=== PATIENT | female | born 1950 | race Caucasian/White ===

== ENCOUNTER 2020-12-10 22:44 | Emergency (ER) | payer MEDICARE, MEDICAID, SELFPAY ==
[2020-12-10 22:45] VITALS: PULSE 96; RESP 22; TEMP 36.6; O2SAT 96; BMI 23.2
[2020-12-10 22:48] VITALS: BP 146/84; PULSE 100; RESP 19; TEMP 36.6; O2SAT 96
--- NOTE | 2020-12-10 22:50 | EKG12_ITS ---
Test Reason : NEURO SX Blood Pressure : / mmHG Vent. Rate : 090 BPM Atrial Rate : 090 BPM P-R Int : 146 ms QRS Dur : 134 ms QT Int : 412 ms P-R-T Axes : 070 -82 -13 degrees QTc Int : 504 ms Atrial-sensed ventricular-paced rhythm Abnormal ECG Confirmed by BRANDEE VÁSQUEZ, ANNA ([id number]), slot editor NATHAN MILLER ([id number]) on 12/16/2020 10:22:22 A M Referred By: LAUREN Confirmed By:RYLIE IRVIN MD
--- NOTE | 2020-12-10 22:50 | RAD_ITS ---
STUDY: X-RAY CHEST REASON FOR EXAM: Female, 70 years old. Neuro deficit, acute, stroke suspected TECHNIQUE: Single AP portable view of the chest. COMPARISON: December 12, 2016 chest x-ray FINDINGS: The right axillary clips. There is a left-sided pacer defibrillator. Left lower chest is obscured by the pacer. Findings are stable since prior study. The lungs are clear and expanded. There is no demonstrated pleural abnormality. There is mild cardiac enlargement. Normal mediastinum and nain. Normal visualized pulmonary arteries. Normal visualized aortic arch and descending thoracic aorta. There are diffuse degenerative changes of the visualized thoracic spine. Normal visualized ribs, clavicles, and shoulders. There is no demonstrated abnormality of the visualized soft tissue structures of the upper abdomen. RAD/Chest 1 View IMPRESSION: Stable chest, defibrillator. Borderline cardiomegaly. Postoperative change right axilla. No visualized focal infiltrate. The pacer obscures the left lower chest similar to prior study. Electronically Signed: Renea Horn MD at 0:09 EST Tel , Service support ,
--- NOTE | 2020-12-10 22:50 | CT_ITS ---
We are attempting to reach an attending provider to discuss findings. An addendum with communication details will be sent when the communication is complete. STUDY: CT HEAD STROKE PROTOCOL W/O CONTRAST INJECTION REASON FOR EXAM: Female, 70 years old. Neuro deficit, acute, stroke suspected RADIATION DOSAGE (If Supplied By Facility): CTDIvol = ( ) mGy, DLP = ( 846.73 ) mGycm TECHNIQUE: Transaxial CT imaging of the brain was performed without administration of intravenous contrast material. Individualized dose optimization techniques were used for this CT. COMPARISON: 12/23/2016 CT head FINDINGS: Subcutaneous hematoma to the right for head. Normal calvarium. There is mild cerebral atrophy with widening of the extra-axial spaces and ventricular dilatation. There are areas of decreased attenuation within the white matter tracts of the supratentorial brain, consistent with microvascular disease changes. Remote lacunar infarcts in the basal ganglia and thalami bilaterally. Coarse severe intracranial atherosclerosis. Normal brainstem. Normal cerebellum. There is no intracranial hemorrhage. There are no findings of an acute ischemic infarction. Normal visualized paranasal sinuses. IMPRESSION: Forehead hematoma. Otherwise no acute disease. Chronic involutional changes of the brain. Electronically Signed: Riaz Echols MD at 23:18 EST , Service support , CT/STROKE Brain/Head without Cont
--- NOTE | 2020-12-10 22:50 | ED.VIS.GEN ---
History of Present Illness Chief Complaint: Neuro S/Sx Past Medical History - Allergies and Home Meds Allergies/Adverse Reactions: Allergies adhesive Allergy (Verified 04/08/17 18:42) Rash albuterol Allergy (Verified 04/08/17 18:42) Unknown amlodipine besylate [From Norvasc] Allergy (Verified 04/08/17 18:42) Hives ciprofloxacin [From Cipro] Allergy (Verified 04/08/17 18:42) Shortness of breath ciprofloxacin HCl [From Cipro] Allergy (Verified 04/08/17 18:42) Shortness of breath Corticosteroids (Glucocorticoids) Allergy (Verified 04/08/17 18:42) Unknown Latex, Natural Rubber Allergy (Verified 04/08/17 18:42) Hives metaproterenol sulfate [From Alupent] Allergy (Verified 04/08/17 18:42) Unknown Penicillins Allergy (Verified 04/08/17 18:42) Hives prazosin HCl [From Minipress] Allergy (Verified 04/08/17 18:42) Unknown Sulfa (Sulfonamide Antibiotics) Allergy (Verified 04/08/17 18:42) Unknown sulfamethoxazole [From Bactrim] Allergy (Verified 04/08/17 18:42) Unknown trimethoprim [From Bactrim] Allergy (Verified 04/08/17 18:42) Unknown doxycycline Adverse Reaction (Verified 04/08/17 18:42) Diarrhea isosorbide mononitrate [From Imdur] Adverse Reaction (Verified 04/08/17 18:42) Other headache lactose Adverse Reaction (Verified 04/08/17 18:42) Nausea/Vom/Diarrhea prednisone Adverse Reaction (Verified 04/08/17 18:42) Other weakness Primary Care Physician: Jose Acosta MD [Primary Care Provider] - Surgical History: angioplasty, mastectomy - Right, - - Catheterization, PPM placement, L knee surgery, R mastectomy. Smoking Status: Current every day smoker - Family History Maternal Family History: Reports: No pertinent history Paternal Family History: Reports: No pertinent history Physical Exam Vital Signs/Narrative: Vital Signs Temp Pulse Resp Pulse Ox 12/10/20 22:45 98 F 96 22 H 96 ED Disposition - Plan for ED Patient: Referrals: Jose Acosta MD [Primary Care Provider] -
[2020-12-10 22:57] VITALS: BMI 23.2
--- NOTE | 2020-12-10 23:09 | CT_ITS ---
STUDY: CT CERVICAL SPINE WITHOUT CONTRAST REASON FOR EXAM: Female, 70 years old. Fall RADIATION DOSAGE (If Supplied By Facility): CTDIvol = ( 22.27 ) mGy, DLP = ( 426.76 ) mGycm TECHNIQUE: High resolution transaxial imaging was performed without contrast material. Sagittal and coronal images were reconstructed. Individualized dose optimization techniques were used for this CT. COMPARISON: March 18, 2015 FINDINGS: Normal craniovertebral junction. Normal anterior atlantoaxial articulation. Normal odontoid process. Calcification of the transverse ligament. Straightening of the normal cervical lordosis compatible with muscle spasm or patient positioning. No fracture identified. Normal vertebral bodies and posterior osseous elements. Displaced narrowing with small marginal osteophytes C3-C4 and C6-C7. Minimal retrolisthesis C3 on C4. Posterior osteophyte disc complex C3-C4 produces mild spinal stenosis. Neuroforamina narrowing C3-C4 on the left, C4-C5 on the right, C5-C6 on the left, C6-C7 bilaterally. Normal visualized soft tissue structures. Carotid calcifications. There is atherosclerotic calcification of the vertebral arteries.. CT/Spine Cervical without Contras IMPRESSION: Multilevel degenerative changes of the cervical spine, no fracture identified. Electronically Signed: Etienne Bagley MD at 0:19 EST , Service support ,
--- NOTE | 2020-12-10 23:09 | ED.RN ---
MD AT BEDSIDE, RAPID IMPROVEMENT IN NIHSS, DID NOT BEAM IN TO [facility] PER MD.
--- NOTE | 2020-12-10 23:10 | ED.VIS.GEN ---
History of Present Illness Chief Complaint: Neuro S/Sx Narrative: This patient is a 70-year-old female who presents after a fall. The stroke team was activated prior to my assessment of the patient. Patient is DNR comfort care only. She presents from a nursing facility. She was last seen normal at 930. She was found down. She has a hematoma over the front of her right forehead. It was reported that her right pupil was not reacting and that she had left-sided weakness. They note that she is normally alert and oriented to everything except the year but she was more confused. Further history is unable to be obtained due to the patient's confusion. Past Medical History - Allergies and Home Meds Allergies/Adverse Reactions: Allergies adhesive Allergy (Verified 12/10/20 23:00) Rash albuterol Allergy (Verified 12/10/20 23:00) Unknown amlodipine besylate [From Norvasc] Allergy (Verified 12/10/20 23:00) Hives ciprofloxacin [From Cipro] Allergy (Verified 12/10/20 23:00) Shortness of breath ciprofloxacin HCl [From Cipro] Allergy (Verified 12/10/20 23:00) Shortness of breath Corticosteroids (Glucocorticoids) Allergy (Verified 12/10/20 23:00) Unknown Latex, Natural Rubber Allergy (Verified 12/10/20 23:00) Hives metaproterenol sulfate [From Alupent] Allergy (Verified 12/10/20 23:00) Unknown Penicillins Allergy (Verified 12/10/20 23:00) Hives prazosin HCl [From Minipress] Allergy (Verified 12/10/20 23:00) Unknown Sulfa (Sulfonamide Antibiotics) Allergy (Verified 12/10/20 23:00) Unknown sulfamethoxazole [From Bactrim] Allergy (Verified 12/10/20 23:00) Unknown trimethoprim [From Bactrim] Allergy (Verified 12/10/20 23:00) Unknown doxycycline Adverse Reaction (Verified 12/10/20 23:00) Diarrhea isosorbide mononitrate [From Imdur] Adverse Reaction (Verified 12/10/20 23:00) Other headache lactose Adverse Reaction (Verified 12/10/20 23:00) Nausea/Vom/Diarrhea prednisone Adverse Reaction (Verified 12/10/20 23:00) Other weakness Primary Care Physician: Jose Acosta MD [STAFF PHYSICIAN] - Past Medical History: - - Hypertension, hyperlipidemia, coronary artery disease, depression, dementia, diabetes Surgical History: angioplasty, mastectomy - Right, - - Catheterization, PPM placement, L knee surgery, R mastectomy. Smoking Status: Former smoker - Family History Maternal Family History: Reports: No pertinent history Paternal Family History: Reports: No pertinent history Review of Systems ROS: Unable to Obtain Physical Exam Vital Signs/Narrative: Vital Signs Temp Pulse Resp BP Pulse Ox 12/10/20 22:48 98 F 100 19 H 146/84 H 96 12/10/20 22:45 98 F 96 22 H 96 Inital Vital Signs reviewed: Yes General: Well nourished, No Acute Distress Head: - - Patient has a hematoma over the right frontal scalp Eyes: Perrl, EOMI ENT: Moist mucous membranes Neck: - - Patient does have paraspinal neck tenderness no midline tenderness or step-off Cardiovascular: Regular rate Respiratory: No distress Abdomen: Soft Extremities: - - Limited range of motion as well as weakness of the right lower extremity which is chronic related to prior polio Skin: Normal color Neurological: Alert, - - Patient is alert, she is oriented to self, she is unable to answer the month or age, NIH stroke scale would be to only for missing questions. On my examination her pupils do react equally and she does not appear to have any focal or lateralizing neurological deficit Psychological: Normal affect Diagnostic/Tx/Re-eval Impressions Brain CT 12/10/20 22:50 ADDENDUM: 12/10/20 2326 Chest X-Ray 12/10/20 22:50 IMPRESSION: Stable chest, defibrillator. Borderline cardiomegaly. Postoperative change right axilla. No visualized focal infiltrate. The pacer obscures the left lower chest similar to prior study. Electronically Signed: Renea Hron MD at 0:09 EST Tel , Service support , Cervical Spine CT 12/10/20 23:09 IMPRESSION: Multilevel degenerative changes of the cervical spine, no fracture identified. Electronically Signed: Etienne Bagley MD at 0:19 EST , Service support , 12/10/20 22:50 Chest 1 View [RAD] Stat STROKE Brain/Head without Cont [CT] Stat 12/10/20 23:09 CT Cervical [Spine Cervical without Contras] [CT] Stat Laboratory Results 12/10/20 12/10/20 12/10/20 22:53 22:53 22:53 WBC 7.0 RBC 4.73 Hgb 13.1 Hct 40.0 MCV 84.6 MCH 27.7 MCHC 32.8 RDW Std Deviation 38.3 RDW Coeff of Javon 12.5 Plt Count 195 MPV 9.6 Immature Gran % (Auto) 0.900 Neut % (Auto) 59.3 Lymph % (Auto) 28.8 Ness % (Auto) 7.2 Eos % (Auto) 3.4 Baso % (Auto) 0.4 Absolute Neuts (auto) 4.1 Absolute Lymphs (auto) 2.01 Nucleated RBC % 0 PT 13.2 INR 1.1 APTT 24.1 Sodium 137 Potassium 3.8 Chloride 103 Carbon Dioxide 26.0 Anion Gap 8 BUN 16 Creatinine 1.14 H Estim Creat Clear Calc 36.32 Est GFR (MDRD) Af Amer 60 Est GFR (MDRD) Non-Af 50 L BUN/Creatinine Ratio 14.0 Glucose 448 H Calcium 9.7 Troponin I 0.026 Urine Color Urine Clarity Urine pH Ur Specific [place] Urine Protein Urine Glucose (UA) Urine Ketones Urine Occult Blood Urine Nitrite Urine Bilirubin Urine Urobilinogen Ur Leukocyte Esterase Urine RBC Urine WBC Ur Squamous Epith Cells Urine Bacteria Urine Mucus Urine Yeast 12/10/20 23:20 WBC RBC Hgb Hct MCV MCH MCHC RDW Std Deviation RDW Coeff of Javon Plt Count MPV Immature Gran % (Auto) Neut % (Auto) Lymph % (Auto) Ness % (Auto) Eos % (Auto) Baso % (Auto) Absolute Neuts (auto) Absolute Lymphs (auto) Nucleated RBC % PT INR APTT Sodium Potassium Chloride Carbon Dioxide Anion Gap BUN Creatinine Estim Creat Clear Calc Est GFR (MDRD) Af Amer Est GFR (MDRD) Non-Af BUN/Creatinine Ratio Glucose Calcium Troponin I Urine Color Yellow Urine Clarity Turbid Urine pH 5.0 Ur Specific [place] 1.025 Urine Protein 100 H Urine Glucose (UA) 1000 H Urine Ketones Negative Urine Occult Blood 150 H Urine Nitrite Negative Urine Bilirubin Negative Urine Urobilinogen Normal Ur Leukocyte Esterase 500 H Urine RBC 25-50 SEEN Urine WBC >100 SEEN Ur Squamous Epith Cells 0 SEEN Urine Bacteria 4+ Urine Mucus 0 SEEN Urine Yeast 4+ - Medical Decision Making At the time of my examination NIH stroke scale was only 2 for missing questions. She does not have focal or lateralizing neurological deficits. She has no dysarthria or aphasia. She has no facial droop. She has normal strength and sensation of the extremities. I do not believe her presentation is consistent with stroke. CT imaging of the head and cervical spine were negative for intracranial hemorrhage or fracture. Labs are unremarkable except glucose of 448 and urinalysis consistent with UTI. Patient was given IV fluids Rocephin and subcutaneous insulin. Blood sugar improved on recheck. Patient will be discharged back to her nursing facility. ED Disposition - Plan for ED Patient: Disposition: Home or Assisted Living Diagnosis: Head injury, Fall, UTI (urinary tract infection), Hyperglycemia Instructions: ED Diabetic Hyperglycemia, ED Head Injury (Adult), ED Bladder Infection, Female (Adult) Prescriptions: Cephalexin [Keflex] 500 mg PO Q12 #14 cap Prescription Printed Referrals: Jose Acosta MD [STAFF PHYSICIAN] -
--- NOTE | 2020-12-10 23:11 | ED.RN ---
LACEY MARTIN CONTACTED LAST KNOWN WELL WAS [id number] JUST PRIOR TO PATIENT FALLING
[2020-12-10 23:15] LABS: International Normalized Ratio 1.1; Prothrombin Time (Protime)PT. 13.2 SECONDS (11.7-14.9)
[2020-12-10 23:17] LABS: Partial Thromboplast Time 24.1 Seconds (24.1-36.2)
[2020-12-10 23:20] LABS: Absolute Lymphocyte Count 2.01 X10^3/uL (0.83-4.51); Absolute Neutrophil Count 4.1 X10^3/uL (2.0-7.7); Basophil# 0.03 X10^3/uL; Basophil% 0.4 % (0-1); Eosinophil# 0.24 X10^3/uL; Eosinophils% 3.4 % (0-5); Hemoglobin 13.1 g/dL (12.0-15.0); Lymphocyte # 2.01 X10^3/ul (4.0); Lymphocyte % 28.8 % (19-41); Mean Corp Hgb Conc 32.8 g/dL (32-36); Mean Corpuscular Hgb 27.7 pg (27.0-32.0); Mean Corpuscular Volume 84.6 fL (81-99); Mean Platelet Vol. 9.6 fl (6.2-12.0); Monocyte% 7.2 % (0-10); NRBC Flagged by Analyzer 0 % (0-5); Neutrophil # 4.13 X10^3/uL (2.7-7.7); Neutrophil % 59.3 % (47-70); Platelet Count 195 K/mm3 (150-450); RBC Distribution Width CV 12.5 % (11.6-14.6); RBC Distribution Width SD 38.3 fl (35.1-43.9); Red Blood Count 4.73 M/mm3 (4.2-5.4)
[2020-12-10 23:27] LABS: Anion Gap 8 (5-15); BUN 16 mg/dL (7-18); Calcium,Total 9.7 mg/dL (8.5-10.1); Chloride 103 mmol/L (98-107); Creatinine, Serum 1.14 mg/dL (0.55-1.02); EST Glomerular Filtration Rate 50 mL/min (>60); Est Glom Filt Rate - Afr Amer 60 mL/min (>60); Estimated Creatinine Clearance 36.32 ml/min; Glucose 448 mg/dL (74-106); Potassium 3.8 mmol/L (3.5-5.1); Sodium Level 137 mmol/L (136-145)
[2020-12-10 23:30] LABS: Mucous, Urine 0 SEEN /hpf (<or=2+); Squamous Epithelial Cells - UA 0 SEEN /hpf (5-10)
[2020-12-10 23:31] LABS: Color, Urine Yellow (Yellow); Glucose, Dipstick 1000 mg/dl (Normal); Ketone-Dipstick Negative (Negative); Leukocyte Esterase-Dipstick 500 /ul (Negative); Nitrite-Dipstick Negative (Negative); Occult Blood-Urine 150 /ul (Negative); Protein-Dipstick 100 mg/dl (Negative); Specific Gravity, Urine 1.025 (1.002-1.030); Urine Bilirubin Dipstick Negative (Negative); Urine Clarity Turbid (Clear); Urine Urobilinogen Normal (Normal)
--- NOTE | 2020-12-10 23:33 | ED.RN ---
Dr Andre gave verbal orders to discontinue NIHs.
[2020-12-10 23:41] LABS: Bacteria 4+ /hpf (None Seen); White Blood Cells >100 SEEN /hpf (0-5)
[2020-12-10 23:42] LABS: Yeast-Urine 4+ /hpf (None Seen)
[2020-12-10 23:44] VITALS: BP 150/84; PULSE 96; RESP 18; O2SAT 96
[2020-12-10 23:45] LABS: Red Blood Cells-Urine 25-50 SEEN /hpf (0-5)
[2020-12-11 00:16] VITALS: BP 133/80; PULSE 96; RESP 18; O2SAT 97
[2020-12-11] MEDS: 0.9% Normal Saline 1,000 ML 999 ML IV (01:06)
[2020-12-11] MEDS: Ceftriaxone 1 GM/50 ML BAG IV (01:06)
[2020-12-11] MEDS: Insulin Lispro 100 UNIT/ML INSULN.PEN 12 UNIT SC (01:07)
[2020-12-11 01:23] VITALS: BP 142/77; PULSE 84; RESP 17; O2SAT 97
[2020-12-11 02:06] LABS: Bedside Glucose 292 mg/dL (70-110)
[2020-12-11 02:22] VITALS: BP 158/89; PULSE 99; RESP 19; O2SAT 97
--- NOTE | 2020-12-11 02:41 | ED.RN ---
REPORT CALLED TO NATHAN SALGUERO. REPORT GIVEN TO EMS.
[2020-12-11 07:20] LABS: Bedside Glucose 472 mg/dL (70-110)
== END 2020-12-11 02:42 | disposition home or self-care (01) ==
PROVIDERS: Emergency Medicine; Emergency Provider Emergency Medicine; PCP Internal Medicine
DX: S09.90XA Unspecified injury of head, initial encounter (principal); W19.XXXA Unspecified fall, initial encounter; Y93.89 Activity, other specified; Y92.129 Unspecified place in nursing home as the place of occurrence of the external cause; Y99.9 Unspecified external cause status; N39.0 Urinary tract infection, site not specified; Z66 Do not resuscitate; I10 Essential (primary) hypertension; E78.5 Hyperlipidemia, unspecified; I25.10 Atherosclerotic heart disease of native coronary artery without angina pectoris; E11.65 Type 2 diabetes mellitus with hyperglycemia; F32.9 Major depressive disorder, single episode, unspecified; F03.90 Unspecified dementia, unspecified severity, without behavioral disturbance, psychotic disturbance, mood disturbance, and anxiety; Z90.11 Acquired absence of right breast and nipple; Z87.891 Personal history of nicotine dependence; Z86.12 Personal history of poliomyelitis
CPT/HCPCS: 70450; 71045; 72125; 80048; 81001; 82962; 84484; 85025; 85610; 85730; 93005; 96365; 99285; J7030; A4216

== ENCOUNTER 2024-05-19 12:47 | Emergency (ER) | payer MEDICARE, MEDICAID, SELFPAY ==
[2024-05-19] VITALS (7 sets, daily range): BP systolic 132; BP diastolic 51; PULSE 23–40; RESP 10–22; TEMP 36.2; O2SAT 97–99; BMI 18.6
--- NOTE | 2024-05-19 12:57 | ED.RN ---
PT IS DECLINING AN IV AT THIS TIME, CONTINUES TO STATE NO NO. PT HAS DNRCC WITH PAPERS AT BEDSIDE. DAUGHTER IS ON HER WAY IN
--- NOTE | 2024-05-19 13:02 | NURSING ---
PER DR. ALVARENGA WITH PT HAVING SIGNED DNRCC, AT THIS TIME PLAN IS TO KEEP PATIENT COMFORTABLE. WILL ATTEMPT TO CALL ECF AND HAVE PT BECOME HOSPICE
--- NOTE | 2024-05-19 13:39 | ED.RN ---
According to residential face sheet, grandhosea Brown is POA over healthcare, daughter Dalia is POA over finances. This RN asked patient who she wanted called in to be at bedside, pt adamantly insists she wants peyman notified to come instead of james Gómez. Per EMS and residential, james Gómez had requested pt transferred to hospital for evaluation. Pt continues to decline any further care at this time, answering all questions appropriately at this time. Pediatric Clinical Nurse Specialist at bedside conversing with pt.
--- NOTE | 2024-05-19 13:53 | NURSING ---
CALLED HOSPICE FOR DR ALVARENGA
--- NOTE | 2024-05-19 14:02 | EX.ED.CRITCA ---
HPI History of Present Illness Chief Complaint: Alt LOC Detail of Chief Complaint: Acute altered mental status Informant: patient, EMS and SNF Onset/Context/Timing Onset: Today Context: Sudden Onset Timing: Continuous Quality: Patient not responsive. She is normally combative. Location: Presents from nursing facility Mechanism/Context: Yes other Current Severity: Severe Maximum Severity: Severe Worsened by: Presumed because of pacemaker failure Relieved by: Nothing Narrative Narrative: Patient response noted all questions. Patient states she does not want her daughter notified. Daughter apparently is financial power of collections attorney. She would like her grandson notified who is the healthcare power of collections attorney. She has a signed DNR comfort care only document from 2017. Patient signed document. Therefore we will honor her wishes. When I entered the room she was initially conversant. She is no longer conversant. She is in third-degree heart block with a rate varied between 30 and 40. At 1 point she had no heartbeat noted. She had agonal breathing. She was quite pale. Secondary was asked to call hospice. Prior similar symptoms: No Recent Illness/Hospitalization: No PFSH PFSH Medical History unable to obtain Home Medications ?Medication ?Instructions ?Recorded ?Last Taken ?Type aluminum-mag hydroxide-simethicone 30 ml PO Q4H PRN PRN Gi Cramping 12/10/20 Unknown History 400 mg-400 mg-40 mg/5 mL oral susp atorvastatin 20 mg tablet 20 mg PO QHS 12/10/20 Unknown History clobetasol propionate (bulk) 0.5 gm miscellaneous DAILY 12/10/20 Unknown History clopidogrel 75 mg tablet 75 mg PO DAILY 12/10/20 Unknown History gabapentin 100 mg capsule 100 mg PO BID 12/10/20 Unknown History metoprolol tartrate 25 mg tablet 25 mg PO DAILY 12/10/20 Unknown History nitroglycerin 0.4 mg sublingual 0.4 mg sublingual Q5M PRN 12/10/20 Unknown History tablet Cardiac/Chest Pain pantoprazole 40 mg tablet,delayed 40 mg PO BID 12/10/20 Unknown History release polyethylene glycol 3350 17 gram 17 gm PO DAILY 12/10/20 Unknown History oral powder packet acetaminophen 325 mg capsule 650 mg PO Q4H PRN fever or pain 05/19/24 Unknown History bisacodyl 10 mg rectal suppository 10 mg SD DAILY PRN constipation 05/19/24 Unknown History bisacodyl 5 mg tablet 5 mg PO Q6H PRN constipation 05/19/24 Unknown History dulaglutide 4.5 mg/0.5 mL 4.5 mg subcut QWEEK 05/19/24 Unknown History subcutaneous pen injector (Trulicity) loratadine 10 mg tablet 10 mg PO DAILY 05/19/24 Unknown History metformin 1,000 mg tablet 1,000 mg PO BID 05/19/24 Unknown History olanzapine 2.5 mg tablet 2.5 mg PO BID 05/19/24 Unknown History potassium chloride 10 mEq 20 meq PO BID 05/19/24 Unknown History capsule,extended release Allergy/AdvReac Type Severity Reaction Status Date / Time adhesive Allergy Rash Verified 12/10/20 23:00 albuterol Allergy Unknown Verified 12/10/20 23:00 amlodipine besylate (From Allergy Hives Verified 12/10/20 23:00 Norvasc) ciprofloxacin (From Cipro) Allergy Shortness Verified 12/10/20 23:00 of breath ciprofloxacin HCl (From Allergy Shortness Verified 12/10/20 23:00 Cipro) of breath Corticosteroids Allergy Unknown Verified 12/10/20 23:00 (Glucocorticoids) Latex, Natural Rubber Allergy Hives Verified 12/10/20 23:00 metaproterenol sulfate (From Allergy Unknown Verified 12/10/20 23:00 Alupent) Penicillins Allergy Hives Verified 12/10/20 23:00 prazosin HCl (From Minipress) Allergy Unknown Verified 12/10/20 23:00 Sulfa (Sulfonamide Allergy Unknown Verified 12/10/20 23:00 Antibiotics) sulfamethoxazole (From Allergy Unknown Verified 12/10/20 23:00 Bactrim) trimethoprim (From Bactrim) Allergy Unknown Verified 12/10/20 23:00 doxycycline AdvReac Diarrhea Verified 12/10/20 23:00 isosorbide mononitrate (From AdvReac Other Verified 12/10/20 23:00 Imdur) lactose AdvReac Nausea/Vom/ Verified 12/10/20 23:00 Diarrhea prednisone AdvReac Other Verified 12/10/20 23:00 Social History Smoking Status: Former smoker ROS ROS ED Review of Systems ROS Unobtainable: due to mental status EXAM Physical Exam Const Vital Signs: 05/19/24 12:49 05/19/24 12:49 05/19/24 13:48 Temperature 97.2 F L 97.2 F L Temperature Source Oral Oral Pulse Rate 40 L 35 L 29 L Respiratory Rate 16 16 18 Blood Pressure 132/51 H 132/51 H Blood Pressure Mean 78 78 Pulse Ox 97 98 98 Oxygen Delivery Method Room Air Room Air Room Air 05/19/24 14:48 05/19/24 15:00 Temperature Temperature Source Pulse Rate 31 L 27 L Respiratory Rate 22 H 14 Blood Pressure Blood Pressure Mean Pulse Ox 97 98 Oxygen Delivery Method Room Air Positive well developed General Appearance ED: well developed, NAD and pallor HEENT normocephalic and atraumatic; Negative for cyanosis of lips/distal nose Eyes PERRL and EOMs intact bilaterally General Eye ED: Yes pale conjunctiva; Negative for scleral icterus Neck no lymphadenopathy and no JVD Resp Resp Narrative: Breath sounds are diminished. There is crackles at the bases. Cardio regular rhythm and no murmurs Rate: bradycardia GI non-tender, non-distended and no masses Back/Spine no CVA tenderness Neuro oriented x3 and CN's II-XII intact bilaterally Sensorium / Orientation: alert Psych mental status grossly normal Skin General Skin Exam: pallor Lesions: no lesions MDM MDM MDM Narrative Medical decision making narrative: Patient has a signed DNR comfort care only document that accompanied her. Patient is the one who sign. Therefore we will honor her wishes and the medical power of collections attorney cannot overturn this. Since patient is DNR comfort care only will treat for discomfort. Patient did have episode where she apparently had a respiratory arrest. She became very bradycardic with agonal breathing. She is back in a third-degree heart block with a rate of 35. She appeared to be in discomfort. This was discussed with nursing staff and they were in agreement. In light of this verbal order was given for IM Ativan and Zofran ODT since she voiced nausea. Spoke with the hospice nurse. She will send over a nurse. She was told specifically that daughter does not have healthcare power of collections attorney only financial. Furthermore the grandson is who patient wished for nurse to contact. And only him. The hospice nurse was made aware that the person assigned a DNR is the patient and therefore we will honor her request for DNR comfort care only. Nurse spoke with grandson. He states that she would not want anything done. He just asked that we tell her. She was informed however it is my professional opinion patient does not have capacity to understand. I asked the nurse to document her conversation with the grandson who is the healthcare POA. EKG Initial EKG: Attestation: I personally reviewed and interpreted this EKG as follows: Interpretation: AV Block (Third-degree block. Ventricular rate 35. Cures duration is prolonged at 138 ms. QT is prolonged at 566 ms. There also is evidence of a left anterior fascicular block.) Treatment and Re-Evaluation Narrative: Spoke with Jolanta the hospice nurse who is presently seeing patient. She was informed of conversation with peyman who is the healthcare power of collections attorney. She was informed that his grandmother expressed she does not want any heroics. 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, Breast cancer, right, FTT (failure to thrive) in adult, History of stroke, Third degree heart block by electrocardiogram Prescriptions: No Action atorvastatin 20 MG tablet 20 mg PO QHS polyethylene glycol 3350 17 GM packet 17 gm PO DAILY clopidogrel 75 MG tablet 75 mg PO DAILY clobetasol propionate (bulk) 0.5 GM powder 0.5 gm MC DAILY Rx Instructions: APPLY TO HANDS pantoprazole 40 MG tablet 40 mg PO BID nitroglycerin 0.4 MG tablet, sublingual 0.4 mg SL Q5M PRN (Reason: Cardiac/Chest Pain) gabapentin 100 MG capsule 100 mg PO BID alum-mag hydroxide-simeth 30 ML suspension 30 ml PO Q4H PRN PRN (Reason: Gi Cramping) metoprolol tartrate 25 MG tablet 25 mg PO DAILY acetaminophen 325 mg capsule 650 mg PO Q4H PRN (Reason: fever or pain) bisacodyl 10 mg suppository 10 mg SD DAILY PRN (Reason: constipation) bisacodyl 5 mg tablet 5 mg PO Q6H PRN (Reason: constipation) Rx Instructions: do not exceed 2 doses per 24 hrs potassium chloride 10 mEq capsule, extended release 20 meq PO BID metformin 1,000 mg tablet 1,000 mg PO BID loratadine 10 mg tablet 10 mg PO DAILY Trulicity 4.5 mg/0.5 mL pen injector 4.5 mg subcut QWEEK olanzapine 2.5 mg tablet 2.5 mg PO BID Primary Care Provider: Jose A Latham Referrals: Jose A Latham MD [Primary Care Provider] - Print Language: Syriac Disposition Disposition: Acute Care Hospital
--- NOTE | 2024-05-19 14:38 | NURSING ---
HOSPICE HERE FOR PATIENT
--- NOTE | 2024-05-19 14:43 | ED.RN ---
This RN had lengthy conversation by phone with healthcare POA grandhosea Brown. He states per previous conversations with his grandmother she would want to be kept comfortable and not have any extensive or invasive healthcare measures when it came to this I don't want anything done. Son Jose A and grandson Kevin are coming in to be with patient.
--- NOTE | 2024-05-19 14:59 | ED.RN ---
Pt has had 3 episodes of becoming unresponsive, heart rate drops and appears to be asystole, unable to feel pulse at times. Pt becomes more responsive and heart rate increases to mid 20-30s. MD at bedside during events.
--- NOTE | 2024-05-19 15:01 | ED.RN ---
Hospice nurse at bedside, report given.
--- NOTE | 2024-05-19 15:04 | CHAPLAIN ---
Type of Pastoral Visit ___ Initial Visit ___ Follow-up Visit ___ On-call Visit ___ General Patient Visit ___ Spiritual Assessment ___ Family Conference ___ Bereavement ___ Rapid Response ___ Code Blue _x__ Other (describe below) Pastoral Care Referral From ___ Patient ___ Family _x__ Nurse ___ Physician ___ Seafood Preparer ___ Bench Jeweler ___ Other (describe below) Sacrament/Intervention ___ Active listening ___ Anointing ___ Latter-Day _x__ Bereavement ___ Communion ___ Bonnie exploration ___ ___ Life review _x__ Prayer ___ Reconciliation ___ Sacrament of Sick _x__ Supportive presence ___ Wedding ___ Other (describe below) Pastoral Comments supercharge repair supervisor nurse called this information technology account manager for presence in the room of this patient who is at end-of-life; pt arrived from [facility] unresponsive and a DNR-CC; pt was able to nod head and give yes or no answers; pt was able at times to verbalize that she was cold; at other times the patient could not respond and at times vital signs indicated near ; pt did revive on her own at times; sat at bedside, put warm blankets on patient, talked to her, prayed for her, waited until hospice and family members arrived; staff from [facility] came to sit with the patient just prior to family coming; offered support to family; home hospice rn meeting with family; [facility] staff took over sitting at bedside
--- NOTE | 2024-05-19 16:04 | ED.RN ---
Not obtaining blood pressures, pt becomes agitated with cuff inflation. Pt continues with episodes of apparent asystole, becomes restless during these times. Pt medicated per family request.
--- NOTE | 2024-05-19 16:13 | ED.RN ---
Nurse to nurse report called to Lianna at hospice.
--- NOTE | 2024-05-19 17:22 | ED.RN ---
Leatha Nicole updated regarding pt transferring to inpatient Hospice
== END 2024-05-19 17:40 | disposition short-term general hospital (02) ==
PROVIDERS: Emergency Provider Emergency Medicine; PCP Internal Medicine; Visit Provider Emergency Medicine
DX: R41.82 Altered mental status, unspecified (principal); I46.9 Cardiac arrest, cause unspecified; I44.2 Atrioventricular block, complete; C50.911 Malignant neoplasm of unspecified site of right female breast; R62.7 Adult failure to thrive; Z95.0 Presence of cardiac pacemaker; Z87.891 Personal history of nicotine dependence; Z86.73 Personal history of transient ischemic attack (TIA), and cerebral infarction without residual deficits
CPT/HCPCS: 96372; 99283